=== PATIENT | female | born 2000 | race Caucasian/White ===

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

== ENCOUNTER → 2021-04-09 | Outpatient (REF) | payer BC, OTHER ==
[2021-04-09 18:02] LABS: HEPATITIS B SURFACE ANTIBODY POSITIVE (POSITIVE); HIV 1&2 SCREEN CENTAUR NEGATIVE (NEGATIVE)
== END ==
LOC: M SFHCADAM 13:40
PROVIDERS: ATTEND Physician Assistant
DX: A60.04 Herpesviral vulvovaginitis (principal)

== ENCOUNTER → 2021-11-18 | Outpatient (CLI) | payer SELFPAY | LOC: M LABSMTC 13:15 | PROVIDERS: ATTEND Pediatrics | DX: Z20.822 Contact with and (suspected) exposure to COVID-19 (principal) ==